=== PATIENT | female | born 1965 | race Caucasian/White ===

== ENCOUNTER → 2020-11-23 | Outpatient (CLI) | payer BC ==
--- NOTE | 2020-11-23 13:50 | Diagnostic Imaging Report ---
INDICATION: Back pain status post injury. COMPARISON: None FINDINGS: Frontal and lateral views of the lumbar spine were obtained. Alignment and vertebral heights are maintained. There is no fracture or destructive process. Minimal multilevel degenerative changes are noted and consist primarily of facet arthropathy of the lower lumbar spine. Limited views of the abdomen demonstrate nonobstructive bowel gas pattern. IMPRESSION: 1. No acute fracture or dislocation of the lumbar spine. Dictated by: Dictated on workstation # [id number]
--- NOTE | 2020-11-23 14:05 | Diagnostic Imaging Report ---
EXAMINATION: Right hip radiographs, 2 views. COMPARISON: None. HISTORY: 55-year-old female, right hip pain. FINDINGS: There is severe joint space loss of the right hip with cjvo-yh-dysh articulation. There is osteophyte formation. There is a protuberance at the right femoral head/neck junction. The right hip is not dislocated. There is no identified acute fracture. There is an intrauterine contraceptive device overlying the midline pelvis. IMPRESSION: Severe osteoarthritis of the right hip. Abnormal protuberance at the right femoral head/neck junction which potentially can be associated with cam-type femoroacetabular impingement which would be a clinical diagnosis. Dictated by: Dictated on workstation # [id number]
== END ==
LOC: RAD 12:20
PROVIDERS: ATTEND Nurse Practitioner Family
DX: M16.11 Unilateral primary osteoarthritis, right hip (principal)
CPT/HCPCS: 72100; 73502

== ENCOUNTER 2022-01-06 10:33 | Emergency (ER) | payer BC ==
[~2022-01-06] VITALS: Ht 170.2 cm; Wt 106.6 kg
--- NOTE | 2022-01-06 11:05 | ED Chest Pain ---
General Chief Complaint: Chest Pain Stated Complaint: COVID + 12/29 - CHEST TIGHTNESS - BACK ACHING Source: patient Exam Limitations: no limitations History of Present Illness Date Seen by Provider: Jan 06, 2022 Time Seen by Provider: 11:02 Initial Comments Patient is a 56-year-old female with a history of asthma who presents the ED wi chest tightness and back discomfort. She states she noticed over the past few days she has been having increased work of breathing difficulty catching her breath worse today. Started having some chest tightness with her breathing as well as pain and discomfort below her shoulder blades. She does report a dry cough. She states she feels extremely tired today. Symptoms started a week ago from this Sunday. She had allergy-like symptoms tested positive for COVID on . Was placed on a steroid and Z-[place] and finished her last dose yesterday. She has been using her albuterol inhaler at home. She denies any wheezing, abdominal pain, vomiting, diarrhea. She does report low-grade temperature and headache with some neck discomfort. Denies of any urinary symptoms. It was recommended come to ED for further evaluation of her chest tightness. No history of coronary artery disease but strong family history. Denies history of COPD. Allergies and Home Medications Allergies Coded Allergies: No Known Drug Allergies (Unverified , 12/12/10) Patient Home Medication List Home Medication List Reviewed: Yes Review of Systems Review of Systems Constitutional: chills, malaise, weakness EENTM: No Double Vision, No Eye Pain Respiratory: Cough, Shortness of Air Cardiovascular: Chest Pain Gastrointestinal: Denies Constipated, Denies Diarrhea, Denies Nausea, Denies Vomiting Genitourinary: Denies Burning, Denies Discharge Musculoskeletal: back pain; No joint pain Skin: No change in color, No change in hair/nails All Other Systems Reviewed Negative Unless Noted: Yes Past Hrtghbc-Dtjnsq-Mdghof Hx Patient Social History Tobacco Use?: No Smoking Status: Never a Smoker Smokeless Tobacco Frequency: Never a User Use of E-Cig and/or Vaping dev: No Use of E-Cig and/or Vaping Bill: Never a User Substance use?: No Alcohol Use?: No Pt feels they are or have been: No Physical Exam Vital Signs Vital Signs - First Documented 01/06/22 10:40 Temp 36.8 Pulse 100 Resp 15 B/P (MAP) 155/96 (115) O2 Delivery Room Air Capillary Refill : Less Than 3 Seconds Height, Weight, BMI Height: '" Weight: lbs. oz. kg; BMI Method: General Appearance: No Apparent Distress, WD/WN HEENT: PERRL/EOMI, TMs Normal, Normal ENT Inspection, Pharynx Normal Neck: Full Range of Motion, Normal Inspection, Non Tender, Supple Respiratory: Chest Non Tender, Lungs Clear, Normal Breath Sounds, No Accessory Muscle Use, No Respiratory Distress Cardiovascular: Regular Rate, Rhythm, No Edema, No Gallop, No JVD, No Murmur Gastrointestinal: Normal Bowel Sounds, No Organomegaly, No Pulsatile Mass, Non Tender, Soft Extremity: Normal Capillary Refill, Normal Inspection, Normal Range of Motion, Non Tender, No Calf Tenderness Neurologic/Psychiatric: Alert, Oriented x3, No Motor/Sensory Deficits, Normal Mood/Affect, abstract manager II-XII Norm as Tested Skin: Normal Color, Warm/Dry Progress/Results/Core Measures Results/Orders Lab Results Laboratory Tests Test 01/06/22 10:51 Range/Units White Blood Count 7.6 4.3-11.0 10^3/uL Red Blood Count 5.46 H 3.80-5.11 10^6/uL Hemoglobin 16.1 H 11.5-16.0 g/dL Hematocrit 48 35-52 % Mean Corpuscular Volume 88 80-99 fL Mean Corpuscular Hemoglobin 30 25-34 pg Mean Corpuscular Hemoglobin Concent 33 32-36 g/dL Red Cell Distribution Width 13.3 10.0-14.5 % Platelet Count 248 130-400 10^3/uL Mean Platelet Volume 10.2 9.0-12.2 fL Immature Granulocyte % (Auto) 1 % Neutrophils (%) (Auto) 63 42-75 % Lymphocytes (%) (Auto) 28 12-44 % Monocytes (%) (Auto) 6 0-12 % Eosinophils (%) (Auto) 2 0-10 % Basophils (%) (Auto) 0 0-10 % Neutrophils # (Auto) 4.8 1.8-7.8 10^3/uL Lymphocytes # (Auto) 2.1 1.0-4.0 10^3/uL Monocytes # (Auto) 0.5 0.0-1.0 10^3/uL Eosinophils # (Auto) 0.2 0.0-0.3 10^3/uL Basophils # (Auto) 0.0 0.0-0.1 10^3/uL Immature Granulocyte # (Auto) 0.1 0.0-0.1 10^3/uL Prothrombin Time 12.0 L 12.2-14.7 SEC INR Comment 0.9 0.8-1.4 Activated Partial Thromboplast Time 24 24-35 SEC D-Dimer 0.39 0.00-0.49 UG/ML Sodium Level 137 135-145 MMOL/L Potassium Level 3.8 3.6-5.0 MMOL/L Chloride Level 103 98-107 MMOL/L Carbon Dioxide Level 20 L 21-32 MMOL/L Anion Gap 14 5-14 MMOL/L Blood Urea Nitrogen 9 7-18 MG/DL Creatinine 0.89 0.60-1.30 MG/DL Estimat Glomerular Filtration Rate 77 BUN/Creatinine Ratio 10 Glucose Level 229 H 70-105 MG/DL Calcium Level 8.8 8.5-10.1 MG/DL Corrected Calcium 8.6 8.5-10.1 MG/DL Magnesium Level 2.2 1.6-2.4 MG/DL Total Bilirubin 0.5 0.1-1.0 MG/DL Aspartate Amino Transf (AST/SGOT) 33 5-34 U/L Alanine Aminotransferase (ALT/SGPT) 52 0-55 U/L Alkaline Phosphatase 109 40-136 U/L Myoglobin 47.6 10.0-92.0 NG/ML Troponin I < 0.028 <0.028 NG/ML B-Type Natriuretic Peptide < 10.0 <100.0 PG/ML Total Protein 7.5 6.4-8.2 GM/DL Albumin 4.2 3.2-4.5 GM/DL My Orders Orders - MACI ANAND PA Cbc With Automated Diff (01/06/22 11:01) Magnesium (01/06/22 11:01) Chest 1 View, Ap/Pa Only (01/06/22 11:01) Comprehensive Metabolic Panel (01/06/22 11:01) Myoglobin Serum (01/06/22 11:01) Protime With Inr (01/06/22 11:01) Partial Thromboplastin Time (01/06/22 11:01) Monitor-Rhythm Ecg Trace Only (01/06/22 11:01) Ed Iv/Invasive Line Start (01/06/22 11:01) Bnp [place] (01/06/22 11:01) Fibrin Degradation Products (01/06/22 11:01) Troponin I [place] (01/06/22 11:01) Vital Signs/I&O 01/06/22 10:40 Temp 36.8 Pulse 100 Resp 15 B/P (MAP) 155/96 (115) O2 Delivery Room Air Comment EKG showed sinus rhythm with frequent PVCs, 96 bpm, QRS duration 77 MS, QTc 397 MS Departure Communication (PCP) Patient was diagnosed with COVID last . Finished a dose of prednisone azithromycin yesterday. Had some intermittent chest tightness and shortness of breath. No history of coronary artery disease but a history of asthma. Has been using her albuterol nebulizer. She has no evidence of respiratory distress. Oxygen 97% on room air. EKG sinus rhythm with frequent PVCs. She does report that the chest tightness appears to be more palpitations. She does have this pain in her back concern for pneumonia. Chest x-ray was negative for pneumonia. Her vital signs were stable. Lab work was otherwise unremarkable. Elevated blood sugar 229. She just finished prednisone but did eat pancakes and syrup right before arrival. No history of diabetes. Patient refused any fluids. Did offer the monoclonal antibody as she as at the 10-day [place] she refused. Discussed with patient this appears to be residual symptoms from the COVID, cough. No wheezing or signs of respiratory distress . Chest xray without strong evidence of pneumonia. I do not think antibiotics is necessary at this time. She just finished a dose of steroids. Continue with an inhaler. Recommend continue with hydration. She does have a pulse ox to monitor oxygen. If oxygen drops below 93% to return back to ED. She is not hypoxic here. She had a negative D-dimer with negative cardiac work-up. Due to the PVCs outpatient cardiac follow-up as needed. If any worsening symptoms return back to ED for further evaluation. Patient denies history of coronary artery disease. Heart score of 2. Impression Primary Impression: COVID-19 Additional Impressions: Chest pain PVC's (premature ventricular contractions) Disposition: HOME, SELF-CARE Condition: Stable Departure-Patient Inst. Decision time for Depature: 12:11 Referrals: NO,LOCAL PHYSICIAN (PCP) Primary Care Physician SHERRELL VILLARREAL MD Patient Instructions: COVID-19 (DC) Add. Discharge Instructions: If any worsening symptoms such as increased work of breathing, chest pain to return back to ED for further evaluation All discharge instructions reviewed with patient and/or family. Voiced understanding. Scripts No Active Prescriptions or Reported Meds MACI ANAND Jan 06, 2022 11:05
[2022-01-06 11:09] LABS: BASOPHILS % (AUTO) 0 % (0-10); EOSINOPHILS # (AUTO) 0.2 10^3/uL (0.0-0.3); EOSINOPHILS % (AUTO) 2 % (0-10); HEMATOCRIT 48 % (35-52); HEMOGLOBIN 16.1 g/dL (11.5-16.0); LYMPHOCYTES # (AUTO) 2.1 10^3/uL (1.0-4.0); LYMPHOCYTES % (AUTO) 28 % (12-44); MEAN CORPUSCULAR HEMOGLOBIN 30 pg (25-34); MEAN CORPUSCULAR HGB CONC 33 g/dL (32-36); MEAN CORPUSCULAR VOLUME 88 fL (80-99); MEAN PLATELET VOLUME 10.2 fL (9.0-12.2); MONOCYTES # (AUTO) 0.5 10^3/uL (0.0-1.0); MONOCYTES % (AUTO) 6 % (0-12); NEUTROPHILS # (AUTO) 4.8 10^3/uL (1.8-7.8); NEUTROPHILS % (AUTO) 63 % (42-75); PLATELET COUNT 248 10^3/uL (130-400); WHITE BLOOD COUNT 7.6 10^3/uL (4.3-11.0)
[2022-01-06 11:18] LABS: INR 0.9 (0.8-1.4)
[2022-01-06 11:30] LABS: ALBUMIN 4.2 GM/DL (3.2-4.5); BILIRUBIN,TOTAL 0.5 MG/DL (0.1-1.0); CALCIUM 8.8 MG/DL (8.5-10.1); CREATININE SERUM 0.89 MG/DL (0.60-1.30); MAGNESIUM 2.2 MG/DL (1.6-2.4); POTASSIUM 3.8 MMOL/L (3.6-5.0); TOTAL PROTEIN 7.5 GM/DL (6.4-8.2)
--- NOTE | 2022-01-06 11:43 | Diagnostic Imaging Report ---
Indication: Lower respiratory infection Portable chest 11:10 AM Heart size and pulmonary vascularity are normal. Lungs are clear. There are no effusions or pneumothoraces. IMPRESSION: No acute abnormalities in the chest Dictated by: Dictated on workstation # [id number]
[2022-01-06 12:30] VITALS: BP 141/73
== END 2022-01-06 12:30 | disposition home or self-care (01) ==
LOC: EDUNIT# 10:33 → ER 10:36
DX: U07.1 COVID-19 (principal); I49.3 Ventricular premature depolarization; R07.89 Other chest pain; Z73.0 Burn-out
CPT/HCPCS: 36415; 71045; 80053; 83735; 83874; 83880; 84484; 85025; 85379; 85610; 85730; 93005; 93041

== ENCOUNTER 2022-04-20 13:24 | Outpatient (CLI) | payer BC ==
[~2022-04-20] VITALS: Ht 172.7 cm; Wt 106.8 kg
[2022-04-20] MEDS ORDERED: ALBU18HF2 INH (15:44)
[2022-04-20] MEDS ORDERED: CETI10TA49 PO (15:44)
[2022-04-20] MEDS ORDERED: OMEP40CA6 PO (15:44)
== END 2022-04-20 15:46 | disposition home or self-care (01) ==
LOC: PREOP 13:24
PROVIDERS: ATTEND Surgery
DX: Z01.818 Encounter for other preprocedural examination (principal)

== ENCOUNTER 2022-04-26 11:52 | Day surgery (SDC) | payer BC ==
[~2022-04-26] VITALS: Ht 172.7 cm; Wt 106.8 kg
[~2022-04-26 11:52] MED LIST: ALBU18HF2 INH; CETI10TA49 PO; OMEP40CA6 PO
[2022-04-26] MEDS ORDERED: LACTATED RINGERS 1,000 ML IV STA (11:59)
[2022-04-26] MEDS ORDERED: LIDOCAINE JELLY 2% 6 ML SYRINGE MM PRN (12:00)
[2022-04-26 12:05] VITALS: BP 131/81
--- NOTE | 2022-04-26 12:13 | Progress Note-Pre Operative ---
Pre-Operative Progress Note Date of Available H&P: Apr 26, 2022 Date H&P Reviewed: Apr 26, 2022 Time H&P Reviewed: 12:00 History & Physical: No changes noted Pre-Operative Diagnosis: screening o SHIRLENE ROSE MD Apr 26, 2022 12:13
[2022-04-26] MEDS ORDERED: PROPOFOL INJECTION 50 ML IV ONE (12:14)
[2022-04-26] MEDS ORDERED: MIDAZOLAM 2 MG/2 ML (VERSED) VIAL ONE (12:14)
--- NOTE | 2022-04-26 12:14 | Discharge Inst-Surgical ---
D/C Lap Instructions-[place] Follow Up Activity as tolerated High Fiber Diet 25g or more per day Avoid Alcohol, Caffeine, Spicy [place] and Acid foods. Drink 64 fluid oz or more of fluids per day. Symptoms to Report: Fever over 101 degree F, Nausea/Vomiting If any problems/questions: Contact your physician or go to Emergency Room SHIRLENE ROSE MD Apr 26, 2022 12:14
[2022-04-26] MEDS ORDERED: ONDANSETRON 4 MG (ZOFRAN) ORAL DISSOLVE TAB PO PRN (12:15)
[2022-04-26] MEDS ORDERED: ONDANSETRON 4 MG/2 ML (SDV) Z0FRAN IVP PRN (12:15)
[2022-04-26 13:40] VITALS: BP 123/72
[2022-04-26 13:45] VITALS: BP 125/81
--- NOTE | 2022-04-26 14:00 | Progress Note-Post Operative ---
Post-Operative Progess Note Surgeon (s)/Clinical Unit Educator (s) Surgeon SHIRLENE ROSE MD Clinical Unit Educator: none Pre-Operative Diagnosis screening colo Post-Operative Diagnosis rectal polyp(pedunculated/sessile)(1cm) Procedure & Operative Findings Date of Procedure 04/26/22 Procedure Performed/Findings colonoscopy with snare polypectomy. Anesthesia Type mac Estimated Blood Loss Estimated blood loss (mL): minimal Specimens/Packing Specimens Removed rectal polyp SHIRLENE ROSE MD Apr 26, 2022 14:00
[2022-04-26 14:06] VITALS: BP 125/81
--- NOTE | 2022-04-26 14:18 | Anesthesia-General Post-Op ---
MAC Patient Condition Mental Status/LOC: Same as Preop Cardiovascular: Satisfactory Nausea/Vomiting: Absent Respiratory: Satisfactory Pain: Controlled Complications: Absent Post Op Complications Complications None Follow Up Care/Instructions Patient Instructions None needed. Anesthesiology Discharge Order Discharge Order Patient is doing well, no complaints, stable vital signs, no apparent adverse anesthesia problems. No complications reported per nursing. MAULIK CARRILLO CRNA Apr 26, 2022 14:18
--- NOTE | 2022-04-27 00:49 | OPERATIVE REPORT ---
DATE OF SERVICE: 04/26/2022 ATTENDING PRIMARY CARE PHYSICIAN: Indira Guzmán MD PREOPERATIVE DIAGNOSIS: Screening colonoscopy. POSTOPERATIVE DIAGNOSIS: A 1 cm polyp of the rectum, which had both pedunculated and villous properties. This was greater than 7 cm from the anal verge. PROCEDURE: Colonoscopy with snare polypectomy. SURGEON: Shirlene Rose MD ANESTHESIA: Monitored anesthesia care. ESTIMATED BLOOD LOSS: Minimal. FINDINGS: A 1 cm polyp of the rectum, which had both pedunculated and villous properties. This was greater than 7 cm from the anal verge. DISPOSITION: The patient tolerated the procedure well. INDICATIONS: The patient is a 56-year-old female referred over to us for screening colonoscopy. She has not had a colonoscopy before in her life. She does report that she does have some constipation and hard stools. She does not report any red blood per rectum, nor any dark tarry stools. She also does not report any family history of colon cancer. DESCRIPTION OF PROCEDURE: The patient was brought to the endoscopy suite and laid in the left lateral decubitus position. After adequate IV pain and sedative medications and monitored anesthesia care, a digital rectal examination was performed. No significant hemorrhoids identified. Normal sphincter tone was felt and there are no palpable masses. The endoscope was then intubated into the anus, rectum and gently insufflated. The endoscope was then advanced through the valves of [place] of the rectum and a polyp approximately 1 cm in size, if not slightly greater was identified. This had both pedunculated as well as sessile properties. Using a wire, snare and electrocautery, we were able to piecemeal and excised the entirety of the lesion and sent this to pathology. Good hemostasis was observed. The endoscope was then advanced through the sigmoid colon. There were no diverticulosis identified. We then proceeded through the remainder of the descending, transverse and ascending colon to the cecum, which is normal. There were no polyps. There were no other lesions identified. The endoscope was then slowly withdrawn while taking a second look and suctioning of residual air with no additional findings. The patient tolerated the procedure well. We will await the biopsy results; however, recommend a high fiber diet with addition of a fiber supplement, which should equal or exceed 25 mg daily to perform soft stools on a daily basis. Due to the size of the lesion as well as potential villous component of the lesion, we would likely recommend a followup colonoscopy in approximately one year. Job ID: [id number] DocumentID: [id number] Dictated Date: 04/26/2022 13:41:17 Finance Associate Date: 04/27/2022 00:47:00 Dictated By: SHIRLENE ROSE MD
== END 2022-04-26 14:35 | disposition home or self-care (01) ==
LOC: ENDO 11:52
PROVIDERS: ATTEND Surgery
DX: Z12.11 Encounter for screening for malignant neoplasm of colon (principal); D12.8 Benign neoplasm of rectum; K21.9 Gastro-esophageal reflux disease without esophagitis; Z79.899 Other long term (current) drug therapy; E66.9 Obesity, unspecified; Z68.35 Body mass index [BMI] 35.0-35.9, adult; Z28.310 Unvaccinated for COVID-19

== ENCOUNTER → 2022-06-01 | Outpatient (CLI) | payer BC ==
--- NOTE | 2022-06-01 10:51 | Diagnostic Imaging Report ---
EXAMINATION: Left knee radiograph EXAM DATE: 06/01/2022 10:45 AM COMPARISON: None available. HISTORY: LT KNEE PAIN TECHNIQUE: 3 views FINDINGS: There is no acute fracture, dislocation, or destructive osseous process. There are are small osteophytes within the medial and lateral compartment as well as along the superior patella. No significant joint space narrowing. There are some heterogeneous calcifications within the lateral left knee musculature. Soft tissues are otherwise unremarkable. IMPRESSION: 1. Degenerative changes of left knee without acute osseous abnormality or significant joint space narrowing. Dictated by: Dictated on workstation # [id number]
== END ==
LOC: RAD 10:11
PROVIDERS: ATTEND Nurse Practitioner Family
DX: M17.12 Unilateral primary osteoarthritis, left knee (principal)
CPT/HCPCS: 73562

== ENCOUNTER → 2022-06-07 | Outpatient (CLI) | payer BC ==
--- NOTE | 2022-06-07 10:52 | Diagnostic Imaging Report ---
MRI LT LOWER EXT JOINT W/O TECHNIQUE: Multiplanar, multisequence MR imaging of the left knee was performed without contrast. COMPARISON: Left knee radiographs of 06/01/2022. INDICATION: Left knee pain. FINDINGS: MENISCI Medial meniscus: Horizontal cleavage tear is present in the posterior horn of the medial meniscus and contacts the undersurface. No associated parameniscal cyst. Lateral meniscus: Normal. LIGAMENTS ACL: Intact. PCL: Intact. MCL: Intact. LCL: The lateral collateral ligamentous complex is intact. EXTENSOR MECHANISM The extensor mechanism is intact. CARTILAGE Medial compartment: Chondral thinning throughout the weightbearing aspect of the medial compartment without superimposed full-thickness articular cartilage loss. Lateral compartment: Multifocal low-grade partial-thickness chondromalacia in the lateral tibial plateau. Patellofemoral compartment: There is a broad region of full-thickness articular cartilage loss and underlying subchondral bone marrow edema in the lateral patellar facet and lateral aspect of the trochlea. BONE No fracture, stress fracture or osteonecrosis. SOFT TISSUE No knee effusion or Friedman's cyst. IMPRESSION: 1. Tricompartmental osteoarthritis is severe in the patellofemoral compartment where there is a broad region of full-thickness articular cartilage loss. 2. Horizontal cleavage tear in the posterior horn of the medial meniscus. Dictated by: Dictated on workstation # [id number]
== END ==
LOC: RAD 08:00
PROVIDERS: ATTEND Nurse Practitioner Family
DX: M17.12 Unilateral primary osteoarthritis, left knee (principal); S83.242A Other tear of medial meniscus, current injury, left knee, initial encounter
CPT/HCPCS: 73721